=== PATIENT | male | born 1940 | race Caucasian/White ===

== ENCOUNTER 2017-10-01 16:57 | Emergency (ER) | payer OTHER ==
[~2017-10-01] VITALS: Ht 172.7 cm; Wt 70.3 kg
[2017-10-01 17:00] VITALS: BP 147/83
--- NOTE | 2017-10-01 17:04 | NUR ---
[id number] FROM [address]RE[address]: ETOH INTOXICATED. BS IN FIELD 96. MD HORTON AT BEDSIDE
--- NOTE | 2017-10-01 17:09 | NUR ---
REGIONAL CONTROLLER CALLED FOR EVAL AND POSSIBLE APS REPORTING
--- NOTE | 2017-10-01 18:22 | NUR ---
Patient eloped from facility. ER MD notified.
== END 2017-10-01 18:24 | disposition home or self-care (01) ==
LOC: ER 17:00
DX: F10.129 Alcohol abuse with intoxication, unspecified (principal)
CPT/HCPCS: A4606; Z7610